=== PATIENT | male | born 1985 | race Caucasian/White ===

== ENCOUNTER → 2019-03-06 | Outpatient (CLI) | payer BC, SELFPAY ==
--- NOTE | 2019-03-06 12:06 | STRESSREP ---
Stress Test Report Date: 03-06-19 Procedure: Exercise tolerance test Indications: Chest pain Consent: Per the patient Procedure: The patient exercised on a Cameron protocol for 10 minutes completing Stage III and 1 minute of stage IV achieving a peak heart rate of 137 bpm (73 % predicted maximal heart rate) with a peak blood pressure 166/64 mmHg and a peak MET capacity of approximately 11 MET's. The baseline ECG demonstrated sinus bradycardia; nonspecific ST/T wave abnormality. The peak exercise ECG demonstrated no obvious ECG changes. [There were no cardiac dysrhythmias pretest, during exercise, or recovery]. The functional capacity was considered good. The patient had no complaint of chest discomfort during exercise or recovery. The examination was discontinued secondary to leg discomfort. Impression: 1. Technically inadequate (percent predicted maximal heart rate < than 85%) exercise tolerance test 2. Peak exercise ECG with no obvious ECG changes at the heart rate achieved 3. [There were no cardiac dysrhythmias during exercise or recovery] This note was generated with [email or web address] software. It may contain incorrect words, spelling, and punctuation that were not noted in checking the note before signing.
== END | disposition home or self-care (01) ==
LOC: CVS 11:08
PROVIDERS: Referring Provider Nurse Practitioner Family; Visit Provider Nurse Practitioner Family
DX: R07.9 Chest pain, unspecified (principal)
CPT/HCPCS: 93017